=== PATIENT | male | born 1985 | race African-American/Black ===

== ENCOUNTER 2019-05-24 16:21 | Emergency (ER) | payer OTHER ==
[~2019-05-24] VITALS: Ht 190.5 cm; Wt 83.9 kg
[2019-05-24 16:25] VITALS: Ht 190.5 cm; Wt 83.9 kg
[2019-05-24 16:58] VITALS: BP 125/62
== END 2019-05-24 16:58 | disposition other institution (70) ==
LOC: ED 16:21
DX: Z02.89 Encounter for other administrative examinations (principal)